=== PATIENT | male | born 1975 | race Caucasian/White ===

== ENCOUNTER 2017-10-23 09:30 | Emergency (ER) | payer SELFPAY ==
[2017-10-23] MEDS ORDERED: Ibuprofen 800 MG TAB ONE (09:45)
[2017-10-23] MEDS ORDERED: HYDROcodone/Acetaminophen 5/325 mg Tablet ONE (09:45)
--- NOTE | 2017-10-23 10:47 | RAD ---
RIGHT WRIST 3 VIEWS: Date: 10/23/17 HISTORY: Right wrist pain. FINDINGS: Mild osteophytosis at the first carpometacarpal joint. Scaphoid waist is intact. No acute fracture, d islocation, or aggressive osseous erosions. IMPRESSION: Mild osteoarthritic changes first carpometacarpal joint. POS: [facility]
== END 2017-10-23 10:20 | disposition home or self-care (01) ==
LOC: BURERS 09:30
DX: M67.431 Ganglion, right wrist (principal); I10 Essential (primary) hypertension; F17.210 Nicotine dependence, cigarettes, uncomplicated